=== PATIENT | female | born 1975 | race African-American/Black ===

== ENCOUNTER 2022-03-09 05:39 | Observation (INO) ==
[~2022-03-09 05:39] MED LIST: CLINDAMYCIN INJ 900 MG/50 ML PREMIX IV ONE
[2022-03-09] MEDS ORDERED: LACTATED RINGERS 1,000 ML IV SCH (06:00)
[2022-03-09] MEDS ORDERED: fentaNYL 100 MCG/2 ML VIAL ONE ×2 (06:22→07:40)
[2022-03-09] MEDS ORDERED: propofoL 200 MG/20 ML VIAL IV ONE (06:22)
[2022-03-09] MEDS ORDERED: LIDOCAINE 2% 5 ML VIAL ONE (06:22)
[2022-03-09] MEDS ORDERED: ONDANSETRON 4 MG/2 ML VIAL ONE ×2 (06:22→08:14)
[2022-03-09] MEDS ORDERED: MIDAZOLAM 2 MG/2 ML VIAL ONE (06:22)
[2022-03-09] MEDS ORDERED: LIDOCAINE 1%/EPI INJ 20 ML VIAL ONE (06:32)
[2022-03-09] MEDS ORDERED: TISSUE ADHESIVE 1 EACH APPLICATOR TOP ONE (06:32)
[2022-03-09] MEDS ORDERED: BUPIVACAINE MPF 0.25% 30 ML VIAL ONE (06:32)
[2022-03-09] MEDS ORDERED: CLINDAMYCIN IV ONE (07:12)
[2022-03-09] MEDS ORDERED: CLINDAMYCIN INJ 900 MG/50 ML PREMIX IV ONE (07:13)
[2022-03-09] MEDS ORDERED: HYDROmorphone 1 MG/1 ML SYRINGE ONE (08:14)
[2022-03-09] MEDS ORDERED: ONDANSETRON 4 MG/2 ML VIAL IV PRN ×2 (08:14→17:17)
[2022-03-09] MEDS: HYDROmorphone 1 MG/1 ML SYRINGE IV PRN ×3 (08:17→08:33)
[2022-03-09] MEDS ORDERED: LABETALOL 20 MG/4 ML SYRINGE IV ONE (09:12)
[2022-03-09] MEDS ORDERED: hydrALAZINE 20 MG/1 ML VIAL IV ONE ×3 (10:58→15:49)
[2022-03-09] MEDS ORDERED: hydrALAZINE 20 MG/1 ML VIAL ONE (11:01)
[2022-03-09] MEDS ORDERED: PROMETHAZINE 25 MG/1 ML VIAL IM ONE ×2 (11:13→17:17)
[2022-03-09] MEDS ORDERED: amLODIPine 5 MG TABLET ONE (12:12)
[2022-03-09] MEDS ORDERED: amLODIPine 5 MG TABLET PO ONE (12:30)
[2022-03-09] MEDS ORDERED: MORPHINE 2 MG/1 ML SYRINGE IV PRN (13:51)
[2022-03-09 14:20] VITALS: BP 220/110
[2022-03-09] MEDS: lisinopriL 20 MG TABLET PO SCH (14:45)
[2022-03-09] MEDS: oxyCODONE/ACETAMINOPHEN 5-325 MG TABLET PO PRN (18:27)
[2022-03-09] MEDS: hydrALAZINE 20 MG/1 ML VIAL IV PRN (19:36)
[2022-03-09] MEDS: hydrALAZINE 25 MG TABLET PO SCH (21:07)
[2022-03-10] MEDS: oxyCODONE/ACETAMINOPHEN 5-325 MG TABLET PO PRN ×2 (03:52→09:10)
[2022-03-10 06:19] LABS: Basophils % 0.1 % (0.0-0.8); Hematocrit 41.4 VOL% (35.7-47.0); Immature Granulocytes % 0.3 %; Immature Granulocytes Absolute 0.02 #; Lymphocytes # 0.9 10*3/uL (1.4-4.0); Lymphocytes % 11.9 % (21.3-54.2); Mean Corpuscular HGB Conc 33.8 GM/DL (32-36); Mean Corpuscular Volume 92.6 FL (87-102); Monocytes # 0.8 10*3/uL (0.11-0.8); Monocytes % 10.7 % (1.7-12.7); Platelet Count 198 T/CUMM (130-400); Red Blood Count 4.47 MC/CUMM (3.8-5.5); Red Cell Distribution Width 13.6 % (9.3-17.3); White Blood Count 7.1 T/CUMM (4-12)
[2022-03-10 06:55] LABS: Calcium 9.3 MG/DL (8.5-10.1); Osmolality,Calculated 266.2 MOS/KG (273-304); Potassium 3.3 MMOL/L (3.5-5.1); Risk Ratio 3.19; Thyroid Stimulating Hormone 0.35 uIU/ml (0.358-3.74)
[2022-03-10] MEDS ORDERED: POTASSIUM CHLORIDE 20 MEQ TABLET PO ONE (07:42)
[2022-03-10 08:22] LABS: Free T4 (Free Thyroxine) 1.17 NG/DL (0.76-1.46)
[2022-03-10] MEDS ORDERED: amLODIPine 10 MG TABLET PO SCH (09:00)
[2022-03-10] MEDS: lisinopriL 20 MG TABLET PO SCH (09:20)
[2022-03-10] MEDS: hydrALAZINE 25 MG TABLET PO SCH ×2 (09:20→14:06)
[2022-03-10] MEDS ORDERED: SULFAMETHOX/TRIMETHOPRIM 800-160 MG TABLET PO SCH (09:30)
[2022-03-10] MEDS: hydrALAZINE 20 MG/1 ML VIAL IV PRN (12:05)
== END 2022-03-10 15:20 | disposition home or self-care (01) ==
LOC: N.OR 05:39 → N.CC 05:39 → N.SDSINP 05:39 → N.CC 14:22 → N.OR 03-10 15:20 → N.CC 03-12 09:50
PROVIDERS: ADMIT Internal Medicine; ATTEND Surgery